=== PATIENT | male | born 1995 | race Caucasian/White ===

== ENCOUNTER 2018-04-27 15:25 | Emergency (ER) | payer SELFPAY ==
[~2018-04-27] VITALS: Ht 182.9 cm; Wt 91.2 kg
--- OUTSIDE RECORDS SUMMARY | 2018-04-27 15:32 | XMS REPORT ---
Author Author TRACY DAVILA Organization [employer] Address Unknown Phone Unavailable Care Team Providers Care Ferry Operator Name Role Phone TRACY DAVILA CP Unavailable Allergies, Adverse Reactions, Alerts Substance Reaction Event Type Penicillin V Potassium confusion Drug Allergy Aspirin itching Drug Allergy Problems Problem Type Condition Code Onset Dates Condition Status Assessment Right knee pain M25.561 Active Problem Attention deficit disorder of childhood with hyperactivity 314.01 Active Medications Medication Code System Code Instructions Start Date End Date Status Dosage Focalin [facility] [address]-77 Nov 23, 2013 by oral route 60 mg daily Ibuprofen [facility] [address]-21 800 MG Orally Three times a day Sep 19, 2015 Nov 18, 2015 1 tablet Clonidine HCl [facility] [address]-75 0.1 MG Orally Once a day 1 tablet Procedures Procedure Coding System Code Date Office Visit, Est Pt., Level 4 CPT-4 53726 Sep 19, 2015 Vital Signs Date/Time: Sep 19, 2015 Temperature 98.5 F BMIPercentile 16.92 % Weight 143 lbs Height 71.5 in BMI 19.66 Index Blood Pressure Diastolic 68 mmHg Blood Pressure Systolic 116 mmHg Cardiac Monitoring Heart Rate 106 bpm Wt Percentile 39.19 % Ht Percentile 77.24 % Results No Known Results Summary Purpose [employer] Submission
--- OUTSIDE RECORDS SUMMARY | 2018-04-27 15:33 | XMS REPORT | Continuity of Care Document ---
Author Author [facility] Address Unknown Phone Unavailable Allergies There is no data. Medications There is no data. Problems Date Dx Coded Attending Type Code Diagnosis Diagnosed By 06/22/2008 TIMBO BRUNSON LCPC V58.69 MEDICATION HIGH RISK 06/22/2008 CHRISTINA ORELLANA DO V58.69 MEDICATION HIGH RISK 08/25/2008 TIMBO BRUNSON LCPC 719.46 PAIN IN JOINT INVOLVING LOWER LEG 08/25/2008 CHRISTINA ORELLANA DO 719.46 PAIN IN JOINT INVOLVING LOWER LEG 09/07/2008 TIMBO BRUNSON LC[facility] V03.89 MENINGOCOCCAL, OTHER SPECIFIED SINGLE BACTERIAL DISEASE 09/07/2008 TIMBO BRUNSON [facility] V05.3 HEPATITIS VIRAL/ALL 09/07/2008 TIMBO BRUNSON [facility] V06.5 DT, TETANUS-DIPHTHERIA [Td] 09/07/2008 TIMBO BRUNSON [facility] V20.2 WELL CHILD, ROUTINE 09/07/2008 CHRISTINA ORELLANA DO V03.89 MENINGOCOCCAL, OTHER SPECIFIED SINGLE BACTERIAL DISEASE 09/07/2008 CHRISTINA ORELLANA DO V05.3 HEPATITIS VIRAL/ALL 09/07/2008 CHRISTINA ORELLANA DO V06.5 DT, TETANUS-DIPHTHERIA [Td] 09/07/2008 CHRISTINA ORELLANA DO V20.2 WELL CHILD, ROUTINE 11/16/2008 TIMBO BRUNSON [facility]PC 079.99 VIRAL SYNDROME 11/16/2008 TIMBO BRUNSON [facility] 528.9 MOUTH PAIN 11/16/2008 CHRISTINA ORELLANA DO 079.99 VIRAL SYNDROME 11/16/2008 CHRISTINA ORELLANA DO 528.9 MOUTH PAIN 11/10/2013 TIMBO BRUNSON LCPC 314.01 ADHD COMBINED 11/10/2013 CHRISTINA ORELLANA DO 314.01 ADHD COMBINED Procedures Code [place] [address] PSYCH DIAGNOSTIC EVALUATION 11/10/2013 [facility], 11/23/2013 Results There is no data. Encounters ACCT No. Visit Date/Time Discharge Status Pt. Type Provider Facility Loc./Unit Complaint [id number] 11/23/2013 08:53:00 11/23/2013 23:59:59 CLS Outpatient CHRISTINA ORELLANA DO [id number] 11/10/2013 08:55:00 11/10/2013 23:59:59 CLS Outpatient TIMBO BRUNSON LCPC
--- NOTE | 2018-04-27 16:00 | ED Upper Extremity ---
General Chief Complaint: Upper Extremity Stated Complaint: R WRIST INJ Source: patient Exam Limitations: no limitations History of Present Illness Date Seen by Provider: Apr 27, 2018 Time Seen by Provider: 15:55 Initial Comments 22-year-old male who presents to the emergency room with complaints of right wrist pain. He reports that he works at [employer] where the building doors and he was moving a door onto a stand when his right arm became smashed in between the door stand. This occurred 45 minutes prior to arrival. He reported to RN that this occurred at noon today. He reports to me that this happened 45 minutes ago. Onset: just prior to arrival Pain/Injury Location: right wrist Method of Injury: direct blow Modifying Factors: Improves With Immobilization; Worse With Movement Allergies and Home Medications Home Medications No Active Prescriptions or Reported Meds Patient Home Medication List Home Medication List Reviewed: Yes Constitutional: see HPI; No chills, No diaphoresis, No fever EENTM: see HPI; No ear discharge, No hearing loss Respiratory: see HPI; No short of breath, No wheezing Cardiovascular: see HPI; No chest pain, No edema Gastrointestinal: see HPI; No abdominal pain, No vomiting Genitourinary: see HPI; No decreased output, No discharge Musculoskeletal: see HPI, joint pain, muscle pain, other (right wrist) Skin: see HPI; No change in hair/nails Psychiatric/Neurological: See HPI; Denies Anxiety, Denies Depressed All Other Systems Reviewed Negative Unless Noted: Yes Past Uqdpxur-Jxwrcw-Yyslqn Hx Patient Social History Recent Foreign Travel: No Contact w/Someone Who Travel: No Physical Exam Vital Signs Vital Signs - First Documented 04/27/18 15:43 Temp 98.0 Pulse 80 Resp 18 B/P (MAP) 127/89 (102) Pulse Ox 99 O2 Delivery Room Air Capillary Refill : General Appearance: WD/WN, no apparent distress Neck: non-tender, full range of motion Respiratory: chest non-tender, lungs clear Gastrointestinal: normal bowel sounds, non tender Back: no CVA tenderness, no vertebral tenderness Shoulder: normal inspection, non-tender Elbow/Forearm: normal inspection, non-tender Wrist: No abrasions, No deformity, No ecchymosis; Yes pain, Yes soft tissue tenderness; No swelling Hand: normal inspection, non-tender Neurologic/Tendon: normal sensation, normal motor functions, normal tendon functions Neurologic/Psychiatric: alert, normal mood/affect, oriented x 3 Skin: normal color, warm/dry Lymphatic: no adenopathy Progress/Results/Core Measures Results/Orders My Orders Orders - CORTNEY [place] APRN Wrist, Right, 3 Views Or More (04/27/18 15:52) Vital Signs/I&O 04/27/18 15:43 Temp 98.0 Pulse 80 Resp 18 B/P (MAP) 127/89 (102) Pulse Ox 99 O2 Delivery Room Air Progress Progress Note : Time: 16:00 Progress Note There is no swelling, ecchymosis, abrasions noted to the right wrist where he reports pain. Departure Communication (Admissions) 1620 we called [facility] to determine if this would be Workmen's Comp. They state he is not employed by them. when asked about this the patient states that he was fired today Impression Primary Impression: Contusion of wrist Qualified Codes: S60.211A - Contusion of right wrist, initial encounter Disposition: HOME, SELF-CARE Condition: Stable/Unchanged Departure-Patient Inst. Decision time for Depature: 16:11 Referrals: NO,LOCAL PHYSICIAN (PCP) Primary Care Physician Patient Instructions: Contusion (DC) Add. Discharge Instructions: You may use ibuprofen and Tylenol as needed for pain and discomfort. Return back to the emergency room for any concerns as needed and follow-up with her doctor within 1 week for recheck. All discharge instructions reviewed with patient and/or family. Voiced understanding. Scripts No Active Prescriptions or Reported Meds Work/School Note: Work Release Form Date Seen in the Emergency Department: Apr 27, 2018 Return to Work: Apr 29, 2018 Restrictions: No Restrictions CORTENY [place] APRN Apr 27, 2018 16:00
--- NOTE | 2018-04-27 16:12 | Diagnostic Imaging Report ---
INDICATION: Injury. Pain. COMPARISON: None. FINDINGS: Three views of the right wrist are obtained. No acute fracture, malalignment, or osseous destructive process is seen. IMPRESSION: Negative right wrist. Dictated by: Dictated on workstation # [id number]
[2018-04-27 16:27] VITALS: BP 127/89
== END 2018-04-27 16:26 | disposition home or self-care (01) ==
LOC: EDUNIT# 15:25 → ER 15:28
DX: S60.211A Contusion of right wrist, initial encounter (principal); W23.0XXA Caught, crushed, jammed, or pinched between moving objects, initial encounter; Y92.89 Other specified places as the place of occurrence of the external cause; Y99.0 Civilian activity done for income or pay
CPT/HCPCS: 73110

== ENCOUNTER 2019-09-07 13:56 | Emergency (ER) | payer OTHER ==
[~2019-09-07] VITALS: Ht 182.2 cm; Wt 90.9 kg
[2019-09-07] MEDS ORDERED: TETANUS,DIPTH,PERTUSS P/F (BOOSTRIX) 0.5 ML VIAL IM ONE (14:45)
[2019-09-07] MEDS ORDERED: HYDROcodone/APAP 5 MG/325 MG (LORTAB) TAB PO ONE (14:45)
--- NOTE | 2019-09-07 15:17 | Diagnostic Imaging Report ---
Indication: Left leg injury with pain AP and lateral views of the left leg are obtained. FINDINGS: No acute fracture or dislocation is identified. No abnormal lytic or sclerotic focus is seen, and there is no radiopaque foreign body. IMPRESSION: No acute abnormality. Dictated by: Dictated on workstation # [id number]
--- NOTE | 2019-09-07 15:18 | Diagnostic Imaging Report ---
INDICATION: Left leg and knee injury. EXAMINATION: AP, oblique, and lateral views of the left knee are obtained. FINDINGS: No acute fracture or dislocation is identified. No abnormal lytic or sclerotic focus is seen, and there is no radiopaque foreign body. IMPRESSION: No acute abnormality. Dictated by: Dictated on workstation # [id number]
--- NOTE | 2019-09-07 15:24 | ED Lower Extremity ---
General Chief Complaint: Lower Extremity Stated Complaint: L LEG INJ Nursing Triage Note: STATES AT AROUND NOON A COW RAN INTO A METAL FENCE THAT HIT HIS LEFT LEG. COMLAINS OF LEFT CALF PAIN. Nursing Sepsis Screen: No Definite Risk History of Present Illness Date Seen by Provider: Sep 07, 2019 Time Seen by Provider: 14:20 Initial Comments 24-year-old male presents for left lower leg pain. He states that he was climbing over a fence and his lower left leg was smashed between a cow and the fence. He was able to ambulate but has left mid calf and ankle pain. No foot pain. He denies paresthesias or radicular symptoms. No previous history of injuries to his left lower leg. He has had no medication prior to arrival for pain. Pain/Injury Location: left leg (lower), left foot Method of Injury: direct blow Allergies and Home Medications Allergies Coded Allergies: Penicillins (Verified Allergy, Unknown, 09/07/19) aspirin (Verified Allergy, Unknown, 09/07/19) Home Medications No Active Prescriptions or Reported Meds Patient Home Medication List Home Medication List Reviewed: Yes Review of Systems Constitutional: no symptoms reported, see HPI Musculoskeletal: see HPI, muscle pain (left lower leg), muscle cramps All Other Systems Reviewed Negative Unless Noted: Yes Past Yltbdia-Lshtai-Pcalgx Hx Past Med/Social Hx: Reviewed Nursing Past Med/Soc Hx Patient Social History Alcohol Use: Occasionally Uses Recreational Drug Use: No Type Used: Smokeless Tobacco Recent Foreign Travel: No Contact w/Someone Who Travel: No Recent Infectious Disease Expo: No Recent Hopitalizations: No Seasonal Allergies Seasonal Allergies: No Past Medical History Surgeries: No Respiratory: No Cardiac: No Neurological: No Sexually Transmitted Disease: No Genitourinary: No Gastrointestinal: No Musculoskeletal: No Endocrine: No HEENT: No Cancer: No Psychosocial: Yes ADD/ADHD Integumentary: No Physical Exam Vital Signs Vital Signs - First Documented 09/07/19 14:10 Temp 37.7 Pulse 86 Resp 16 B/P (MAP) 129/80 (96) Pulse Ox 98 O2 Delivery Room Air Capillary Refill : Less Than 3 Seconds Height, Weight, BMI Height: 6'" Weight: 201lbs. oz. 91.710893qg; 27.00 BMI Method:Stated General Appearance: WD/WN, no apparent distress Cardiovascular: normal peripheral pulses, regular rate, rhythm Respiratory: chest non-tender, lungs clear, normal breath sounds Legs: left leg normal inspection, left leg bone tenderness (mid tib-fib), left leg soft tissue tenderness Knees: left knee non-tender, left knee normal inspection, left knee normal range of motion Ankles: left ankle normal inspection, left ankle normal range of motion, left ankle no evidence of injury, left ankle soft tissue tenderness (bilaterally) Feet: left foot non-tender, left foot normal inspection, left foot normal range of motion, left foot no evidence of injury Neurologic/Tendon: normal sensation, normal motor functions, normal tendon functions Neurologic/Psychiatric: no motor/sensory deficits, alert, normal mood/affect, oriented x 3 Progress/Results/Core Measures Results/Orders My Orders Orders - CHARITY CALLAHAN Knee, Left, 3 Views (09/07/19 14:33) Tibia/Fibula, Left, 2 Views (09/07/19 14:33) Dipht,Pertuss(Acell),Tet Adult (Boostrix (09/07/19 14:45) Hydrocodone/Apap 5/325 Tablet (Lortab 5 (09/07/19 14:45) Medications Given in ED Current Medications Medications Dose Ordered Sig/Pratik Route Start Time Stop Time Status Last Admin Dose Admin Acetaminophen/ Hydrocodone Bitart 1 tab ONCE ONCE PO 09/07/19 14:45 09/07/19 14:46 DC 09/07/19 14:54 1 TAB Diphtheria/ Tetanus/Acell Pertussis 0.5 ml ONCE ONCE IM 09/07/19 14:45 09/07/19 14:46 DC 09/07/19 14:53 0.5 ML Vital Signs/I&O 09/07/19 09/07/19 14:10 15:36 Temp 37.7 37.7 Pulse 86 86 Resp 16 16 B/P (MAP) 129/80 (96) 129/80 (96) Pulse Ox 98 98 O2 Delivery Room Air Blood Pressure Mean: 96 POS Diagnostic Imaging Diagonstic Imaging: Xray Comments NAME: DEISY GUAN MED REC#: [id number] PT STATUS: REG ER : 1995 PHYSICIAN: CHARITY CALLAHAN ADMIT DATE: 09/07/19/ER Draft POSDate of Exam:09/07/19 KNEE, LEFT, 3 VIEWS INDICATION: Left leg and knee injury. EXAMINATION: AP, oblique, and lateral views of the left knee are obtained. FINDINGS: No acute fracture or dislocation is identified. No abnormal lytic or sclerotic focus is seen, and there is no radiopaque foreign body. IMPRESSION: No acute abnormality. Dictated on workstation # [id number] Dict: 09/07/19 151 Trans: 09/07/191516 [id number] Interpreted by: JUANCARLOS LAL MD Electronically signed by: Reviewed: Reviewed by Me Diagonstic Imaging: Xray Comments NAME: DEISY GUAN MED REC#: [id number] PT STATUS: REG ER : 1995 PHYSICIAN: CHARITY CALLAHAN ADMIT DATE: 09/07/19/ER Signed POSDate of Exam: 09/07/19 TIBIA/FIBULA, LEFT, 2 VIEWS Indication: Left leg injury with pain AP and lateral views of the left leg are obtained. FINDINGS: No acute fracture or dislocation is identified. No abnormal lytic or sclerotic focus is seen, and there is no radiopaque foreign body. IMPRESSION: No acute abnormality. Dictated by: Dictated on workstation # [id number] Dict: 09/07/191514 Trans: 09/07/191515 Interpreted by: JUANCARLOS LAL MD Electronically signed by: JUANCARLOS LAL MD 09/07/191515 Reviewed: Reviewed by Me Departure Impression Primary Impression: Contusion of left lower leg Qualified Codes: S80.12XA - Contusion of left lower leg, initial encounter Disposition: HOME, SELF-CARE Condition: Improved Departure-Patient Inst. Decision time for Depature: 15:15 Referrals: NO,LOCAL PHYSICIAN (PCP/Family) Primary Care Physician Patient Instructions: Contusion (DC) Add. Discharge Instructions: Ice and elevate left lower extremity. Activity as tolerated. Alternate between ibuprofen 600 mg and Tylenol 650 mg every 4 hours for pain or swelling. Follow-up with your primary care provider if symptoms are not improving or worsen. Rhys wrap to left lower extremity. Return to the emergency department for new, urgent health care needs. All discharge instructions reviewed with patient and/or family. Voiced understanding. Scripts No Active Prescriptions or Reported Meds CHARITY CALLAHAN Sep 07, 2019 15:24 POS
[2019-09-07 15:36] VITALS: BP 129/80
== END 2019-09-07 15:36 | disposition home or self-care (01) ==
LOC: EDUNIT# 13:56 → ER 13:58
DX: S80.12XA Contusion of left lower leg, initial encounter (principal); F90.9 Attention-deficit hyperactivity disorder, unspecified type; Z88.0 Allergy status to penicillin; Z88.6 Allergy status to analgesic agent; W23.1XXA Caught, crushed, jammed, or pinched between stationary objects, initial encounter
CPT/HCPCS: 73562; 73590; 90471; 90715

== ENCOUNTER 2022-05-05 16:43 | Emergency (ER) | payer MEDICAID ==
[~2022-05-05] VITALS: Ht 182 cm; Wt 104.0 kg
--- NOTE | 2022-05-05 17:32 | Diagnostic Imaging Report ---
INDICATION: Chest pain. Frontal chest obtained at 5:31 p.m. There is no prior study for comparison. FINDINGS: There is poor inspiration. Heart and mediastinal silhouette are normal in appearance. The lungs are clear. There is no pneumothorax or pleural fluid. IMPRESSION: Negative chest. Dictated by: Dictated on workstation # [id number]
[2022-05-05 17:38] LABS: BASOPHILS # (AUTO) 0.1 10^3/uL (0.0-0.1); BASOPHILS % (AUTO) 1 % (0-10); EOSINOPHILS # (AUTO) 0.8 10^3/uL (0.0-0.3); EOSINOPHILS % (AUTO) 7 % (0-10); HEMATOCRIT 42 % (40-54); HEMOGLOBIN 14.2 g/dL (13.3-17.7); LYMPHOCYTES # (AUTO) 2.8 10^3/uL (1.0-4.0); LYMPHOCYTES % (AUTO) 26 % (12-44); MEAN CORPUSCULAR HEMOGLOBIN 30 pg (25-34); MEAN CORPUSCULAR HGB CONC 34 g/dL (32-36); MEAN CORPUSCULAR VOLUME 88 fL (80-99); MEAN PLATELET VOLUME 9.6 fL (9.0-12.2); MONOCYTES % (AUTO) 9 % (0-12); NEUTROPHILS % (AUTO) 56 % (42-75); PLATELET COUNT 316 10^3/uL (130-400); WHITE BLOOD COUNT 10.7 10^3/uL (4.3-11.0)
[2022-05-05 17:45] LABS: BILIRUBIN,URINE NEGATIVE (NEGATIVE); CLARITY,URINE CLEAR; COLOR,URINE YELLOW; GLUCOSE, URINE (UA) NEGATIVE (NEGATIVE); KETONES,URINE NEGATIVE (NEGATIVE); LEUKOCYTE ESTERASE ,URINE NEGATIVE (NEGATIVE); NITRITE,URINE NEGATIVE (NEGATIVE); PH,URINE 6.5 (5-9); PROTEIN,URINE NEGATIVE (NEGATIVE)
--- NOTE | 2022-05-05 17:47 | ED Chest Pain ---
General Chief Complaint: Chest Pain Stated Complaint: CP, L ARM PAIN Nursing Triage Note: PT AMB TO RM 2 PT CO OF CHEST PAIN INTERMITTENTLY FOR APPROX 1 MONTH. PT STATES TODAYS EPISODE STARTED APPROX 1 HOUR AGO. RATES PAIN 6/10 W PAIN DOWN L ARM. Source: patient History of Present Illness Date Seen by Provider: May 05, 2022 Time Seen by Provider: 17:04 Initial Comments PT ARRIVES VIA POV FROM HOME C/O CHEST PAIN OFF AND ON FOR 1 MONTH--MOSTLY LEFT UPPER CHEST PAIN RADIATES DOWN LEFT ARM RATES PAIN 6/10 PAIN STARTED AGAIN 1 HOUR PRIOR TO ARRIVAL, WHILE AT WORK PT WORKS FOR [employer], AND WAS DIGGING A HOLE AND HAD JUST GOTTEN OUT OF THE HOLE HE HAD DUG AND HIS CHEST STARTED HURTING--NOT A NEW JOB OR NEW ACTIVITY. NO OTHER SYMPTOMS HAS NOT SOUGHT CARE UNTIL TODAY SYMPTOMS NO DIFFERENT TODAY HAS NOT TAKEN ANYTHING FOR PAIN AT ANY TIME NO CHRONIC MEDICAL PROBLEMS PCP: EN[facility] [place] Allergies and Home Medications Allergies Coded Allergies: Penicillins (Verified Allergy, Unknown, 09/07/19) aspirin (Verified Allergy, Unknown, 09/07/19) Patient Home Medication List Home Medication List Reviewed: Yes No Active Prescriptions or Reported Meds Review of Systems Review of Systems Constitutional: no symptoms reported EENTM: No Symptoms Reported Respiratory: No Symptoms Reported Cardiovascular: See HPI Gastrointestinal: No Symptoms Reported Genitourinary: No Symptoms Reported Musculoskeletal: see HPI Skin: no symptoms reported Psychiatric/Neurological: No Symptoms Reported Endocrine: No Symptoms Reported Hematologic/Lymphatic: No Symptoms Reported Past Edwgeev-Ywveft-Gxhuyt Hx Patient Social History Tobacco Use?: Yes Tobacco type used: Cigarettes Smoking Status: Current Everyday Smoker Smokeless Tobacco Frequency: Current Everyday User Use of E-Cig and/or Vaping dev: No Substance use?: No Alcohol Use?: Yes Alcohol Frequency: Rarely Pt feels they are or have been: No Immunizations Up To Date First/Initial COVID19 Vaccinat: J AND J Seasonal Allergies Seasonal Allergies: No Past Medical History Surgeries: No Respiratory: No Cardiac: No Neurological: No Sexually Transmitted Disease: No Genitourinary: No Gastrointestinal: No Musculoskeletal: No Endocrine: No HEENT: No Cancer: No Psychosocial: Yes ADD/ADHD Integumentary: No Blood Disorders: No Physical Exam Vital Signs Vital Signs - First Documented 05/05/22 16:57 Temp 36.0 Pulse 96 Resp 12 B/P (MAP) 136/84 (101) Pulse Ox 98 Capillary Refill : Less Than 3 Seconds Height, Weight, BMI Height: 6'" Weight: 201lbs. oz. 91.975027es; 31.00 BMI Method:Stated General Appearance: No Apparent Distress, WD/WN, Other (FILTHY, MALODOROUS) Neck: Normal Inspection Respiratory: Normal Breath Sounds, No Accessory Muscle Use, No Respiratory Distress, Other (LEFT UPPER CHEST TENDER TO PALPATION--REPRODUCES PAIN ) Cardiovascular: Regular Rate, Rhythm, No Edema, No JVD, No Murmur, Normal Peripheral Pulses Gastrointestinal: Normal Bowel Sounds, No Organomegaly, No Pulsatile Mass, Non Tender, Soft Extremity: Normal Capillary Refill, Normal Inspection, Normal Range of Motion, Non Tender, No Calf Tenderness Neurologic/Psychiatric: Alert, Oriented x3, No Motor/Sensory Deficits, Normal Mood/Affect, monitoring engineer II-XII Norm as Tested Skin: Normal Color, Warm/Dry; No Rash Progress/Results/Core Measures Results/Orders Lab Results Laboratory Tests Test 05/05/22 17:30 05/05/22 17:40 Range/Units White Blood Count 10.7 4.3-11.0 10^3/uL Red Blood Count 4.79 4.30-5.52 10^6/uL Hemoglobin 14.2 13.3-17.7 g/dL Hematocrit 42 40-54 % Mean Corpuscular Volume 88 80-99 fL Mean Corpuscular Hemoglobin 30 25-34 pg Mean Corpuscular Hemoglobin Concent 34 32-36 g/dL Red Cell Distribution Width 12.7 10.0-14.5 % Platelet Count 316 130-400 10^3/uL Mean Platelet Volume 9.6 9.0-12.2 fL Immature Granulocyte % (Auto) 1 % Neutrophils (%) (Auto) 56 42-75 % Lymphocytes (%) (Auto) 26 12-44 % Monocytes (%) (Auto) 9 0-12 % Eosinophils (%) (Auto) 7 0-10 % Basophils (%) (Auto) 1 0-10 % Neutrophils # (Auto) 6.0 1.8-7.8 10^3/uL Lymphocytes # (Auto) 2.8 1.0-4.0 10^3/uL Monocytes # (Auto) 1.0 0.0-1.0 10^3/uL Eosinophils # (Auto) 0.8 H 0.0-0.3 10^3/uL Basophils # (Auto) 0.1 0.0-0.1 10^3/uL Immature Granulocyte # (Auto) 0.1 0.0-0.1 10^3/uL Prothrombin Time 13.4 12.2-14.7 SEC INR Comment 1.0 0.8-1.4 Activated Partial Thromboplast Time 31 24-35 SEC Sodium Level 140 135-145 MMOL/L Potassium Level 4.0 3.6-5.0 MMOL/L Chloride Level 104 98-107 MMOL/L Carbon Dioxide Level 25 21-32 MMOL/L Anion Gap 11 5-14 MMOL/L Blood Urea Nitrogen 17 7-18 MG/DL Creatinine 0.88 0.60-1.30 MG/DL Estimat Glomerular Filtration Rate 123 BUN/Creatinine Ratio 19 Glucose Level 84 70-105 MG/DL Calcium Level 9.8 8.5-10.1 MG/DL Corrected Calcium 8.5-10.1 MG/DL Magnesium Level 2.1 1.6-2.4 MG/DL Total Bilirubin 0.7 0.1-1.0 MG/DL Aspartate Amino Transf (AST/SGOT) 29 5-34 U/L Alanine Aminotransferase (ALT/SGPT) 37 0-55 U/L Alkaline Phosphatase 93 40-136 U/L Troponin I < 0.028 <0.028 NG/ML B-Type Natriuretic Peptide < 10.0 <100.0 PG/ML Total Protein 7.6 6.4-8.2 GM/DL Albumin 4.6 H 3.2-4.5 GM/DL Lipase 34 8-78 U/L Urine Color YELLOW Urine Clarity CLEAR Urine pH 6.5 5-9 Urine Specific [place] 1.025 H 1.016-1.022 Urine Protein NEGATIVE NEGATIVE Urine Glucose (UA) NEGATIVE NEGATIVE Urine Ketones NEGATIVE NEGATIVE Urine Nitrite NEGATIVE NEGATIVE Urine Bilirubin NEGATIVE NEGATIVE Urine Urobilinogen 1.0 < = 1.0 MG/DL Urine Leukocyte Esterase NEGATIVE NEGATIVE Urine RBC (Auto) NEGATIVE NEGATIVE Urine RBC NONE /HPF Urine WBC NONE /HPF Urine Squamous Epithelial Cells NONE /HPF Urine Crystals PRESENT H /LPF Urine Amorphous Sediment FEW BECKIE URATES H /LPF Urine Bacteria TRACE /HPF Urine Casts NONE /LPF Urine Mucus MODERATE H /LPF Urine Culture Indicated NO Urine Opiates Screen NEGATIVE NEGATIVE Urine Oxycodone Screen NEGATIVE NEGATIVE Urine Methadone Screen NEGATIVE NEGATIVE Urine Propoxyphene Screen NEGATIVE NEGATIVE Urine Barbiturates Screen NEGATIVE NEGATIVE Ur Tricyclic Antidepressants Screen NEGATIVE NEGATIVE Urine Phencyclidine Screen NEGATIVE NEGATIVE Urine Amphetamines Screen NEGATIVE NEGATIVE Urine Methamphetamines Screen NEGATIVE NEGATIVE Urine Benzodiazepines Screen NEGATIVE NEGATIVE Urine Cocaine Screen NEGATIVE NEGATIVE Urine Cannabinoids Screen NEGATIVE NEGATIVE My Orders Orders - IRENE ANDRADE DO Ed Iv/Invasive Line Start (05/05/22 17:11) Ekg Tracing (05/05/22 17:11) Monitor-Rhythm Ecg Trace Only (05/05/22 17:11) Bnp Sasha (05/05/22 17:11) Cbc With Automated Diff (05/05/22 17:11) Comprehensive Metabolic Panel (05/05/22 17:11) Drug Screen Stat (Urine) (05/05/22 17:11) Lipase (05/05/22 17:11) Magnesium (05/05/22 17:11) Protime With Inr (05/05/22 17:11) Partial Thromboplastin Time (05/05/22 17:11) Ua Culture If Indicated (05/05/22 17:11) Troponin I Sasha (05/05/22 17:11) Chest 1 View, Ap/Pa Only (05/05/22 17:11) Vital Signs/I&O 05/05/22 05/05/22 16:57 18:41 Temp 36.0 36.0 Pulse 96 96 Resp 12 12 B/P (MAP) 136/84 (101) 136/84 Pulse Ox 98 98 Blood Pressure Mean: 101 Progress Progress Note : Progress Note UNEVENTFUL ER STAY Initial ECG Impression Date: May 05, 2022 Initial ECG Impression Time: 17:17 Initial ECG Rate: 92 Initial ECG Rhythm: Normal Sinus Initial ECG Impression: Normal Diagnostic Imaging Comments CXR--PER RADIOLOGIST REPORT AT 1748 FINDINGS: There is poor inspiration. Heart and mediastinal silhouette are normal in appearance. The lungs are clear. There is no pneumothorax or pleural fluid. IMPRESSION: Negative chest. Reviewed: Reviewed by Me Departure Impression Primary Impression: Chest pain Additional Impression: Chest wall pain Disposition: 01 HOME, SELF-CARE Condition: Stable Departure-Patient Inst. Referrals: NO,LOCAL PHYSICIAN (PCP) Primary Care Physician Patient Instructions: Chest Pain (DC), Costochondritis (DC) Add. Discharge Instructions: TYLENOL AND MOTRIN NEEDED FOR PAIN FOLLOW UP WITH YOUR DR THIS WEEK FOR FURTHER CARE--CALL IN THE MORNING TO SCHEDULE APPOINTMENT All discharge instructions reviewed with patient and/or family. Voiced understanding. Scripts No Active Prescriptions or Reported Meds IRENE ANDRADE DO May 05, 2022 17:47
[2022-05-05 17:57] LABS: AMPHETAMINE SCREEN, URINE NEGATIVE (NEGATIVE); BARBITURATE SCREEN URINE NEGATIVE (NEGATIVE); BENZODIAZEPINES SCREEN URINE NEGATIVE (NEGATIVE); CANNABINOID SCREEN, URINE NEGATIVE (NEGATIVE); COCAINE SCREEN URINE NEGATIVE (NEGATIVE); METHADONE STAT NEGATIVE (NEGATIVE); OPIATE SCREEN URINE NEGATIVE (NEGATIVE); OXYCODONE STAT NEGATIVE (NEGATIVE); PROPOXYPHENE STAT NEGATIVE (NEGATIVE); TRICYCLIC ANTIDEPRESSANTS SCRE NEGATIVE (NEGATIVE)
[2022-05-05 18:00] LABS: ALBUMIN 4.6 GM/DL (3.2-4.5)
[2022-05-05 18:01] LABS: CHLORIDE 104 MMOL/L (98-107); PROTHROMBIN TIME PATIENT 13.4 SEC (12.2-14.7); SODIUM 140 MMOL/L (135-145)
[2022-05-05 18:02] LABS: CALCIUM 9.8 MG/DL (8.5-10.1)
[2022-05-05 18:03] LABS: GLUCOSE 84 MG/DL (70-105); TOTAL PROTEIN 7.6 GM/DL (6.4-8.2)
[2022-05-05 18:04] LABS: CARBON DIOXIDE 25 MMOL/L (21-32)
[2022-05-05 18:05] LABS: BILIRUBIN,TOTAL 0.7 MG/DL (0.1-1.0)
[2022-05-05 18:06] LABS: ALKALINE PHOSPHATASE 93 U/L (40-136)
[2022-05-05 18:07] LABS: CREATININE SERUM 0.88 MG/DL (0.60-1.30); GFR ESTIMATED 123
[2022-05-05 18:08] LABS: BUN/CREATININE RATIO 19
[2022-05-05 18:09] LABS: MAGNESIUM 2.1 MG/DL (1.6-2.4)
[2022-05-05 18:10] LABS: BACTERIA,URINE TRACE /HPF
[2022-05-05 18:10] LABS: ALANINE AMINOTRANSFERASE 37 U/L (0-55); LIPASE 34 U/L (8-78)
[2022-05-05 18:11] LABS: AMORPHOUS SEDIMENT,UR FEW AMOR URATES /LPF
[2022-05-05 18:41] VITALS: BP 136/84
== END 2022-05-05 18:41 | disposition home or self-care (01) ==
LOC: EDUNIT# 16:43 → ER 16:45
DX: R07.89 Other chest pain (principal); F17.210 Nicotine dependence, cigarettes, uncomplicated; F17.220 Nicotine dependence, chewing tobacco, uncomplicated
CPT/HCPCS: 36415; 71045; 80053; 80306; 81000; 83690; 83735; 83880; 84484; 85025; 85610; 85730; 93005; 93041